=== PATIENT | female | born 1940 | race Hispanic/Latino ===

== ENCOUNTER → 2017-09-25 | Day surgery (SDC) | payer OTHER ==
--- NOTE | 2017-09-24 11:35 | Diagnostic Imaging Report ---
PROCEDURE: X-RAY CHEST, TWO VIEWS COMPARISON: None. INDICATIONS: PRE OPERATIVE CHEST X-RAY FOR ELBOW SURGERY FINDINGS: The lungs are well-inflated. No focal airspace consolidation, pleural effusion, or pneumothorax. Nodular opacities projecting over the lung bases likely represent nipple shadows. Tortuosity and atherosclerotic calcification of the thoracic aorta. Normal heart size. No overt pulmonary edema. No acute osseous abnormality. Surgical clips project over the right upper quadrant of the abdomen compatible with cholecystectomy. CONCLUSION: No acute cardiopulmonary abnormality. Dictated by: Donnie Saavedra M.D. on 09/24/2017 at 11:38 Electronically approved by: Donnie Saavedra M.D. on 09/24/2017 at 11:38
[~2017-09-25] MED LIST: ACETAMINOPHEN/CODEINE 300MG - 30MG TAB ONE; ASPIR 8181 MG PO; BACITRACIN 50,000 UNIT VIAL ONE; BONIVA150 MG PO; BUPIVACAINE HCL 0.5% INJ 30 ML VIAL INJ ONE; CEFAZOLIN SOD 2 GM/D5W 50ML 50 ML IV ONE; COENZYME Q1010 MG PO; DEXAMETHASONE SOD PHOS INJ 4 MG/ML VIAL ONE; DIOVAN HCT 1601 EACH PO; DIOVAN80 MG PO; EPHEDRINE SULFATE INJ 50 MG/10 ML SYR ONE; FENTANYL CITRATE/PF 100MCG/2 ML INJ ONE; GLYCOPYRROLATE INJ 1MG/ 5 ML SYR ONE; KETOROLAC TROMETHAMINE 30 MG/ML VIAL ONE; LABETALOL HCL 5 MG/ML 20ML VIAL ONE; LIDOCAINE HCL 2% LOCAL INJ 5 ML SDV VIAL INJ ONE; LOPRESSOR25 MG PO; LORAZEPAM2 MG PO; LOSARTAN POTAS100 MG PO; MIDAZOLAM HCL 2 MG/2 ML VIAL ONE; NEOSTIGMINE 5 MG/5ML SYR ONE; ONDANSETRON HCL INJ 2 MG/ML VIAL ONE; PROPOFOL IV EMULSION 10 MG/ML 20 ML VIAL ONE; ROCURONIUM BROMIDE 10 MG/ML 5ML VIAL ONE; SEVOFLURANE INHAL SOLN 250 ML PEN BTL ONE; SIMVASTATIN20 MG PO
--- NOTE | 2017-09-28 15:29 | Operative Report ---
DATE OF PROCEDURE: September 25, 2017 PREOPERATIVE DIAGNOSIS: Fracture of the lateral condyle of the right distal humerus. POSTOPERATIVE DIAGNOSIS: Fracture of the lateral condyle of the right distal humerus. OPERATIONS/PROCEDURE PERFORMED: Patient underwent an open reduction and internal fixation of the right lateral condyle fracture of the right distal humerus. PATTERN DATA OPERATOR: None. ANESTHESIA: General endotracheal intubation anesthesia. IV FLUIDS: Per anesthesia record. BRIEF DESCRIPTION OF OPERATIVE PROCEDURE: Ms. Alas was taken to the operating room and placed in supine position on the operating table. Following induction of general anesthesia as well as endotracheal intubation, patient's right upper extremity was examined under anesthesia. She was found to have bruising and swelling about the elbow joint. Fluoroscopic evaluation of the patient's elbow demonstrated an intra-articular fracture of the lateral condyle of the humerus. There was mild displacement at the time of surgery. The patient's upper extremity was prepped and draped in standard surgical fashion. The case was begun by creating incision along the posterior aspect of the arm extending over the olecranon process and ulna. This incision was carried through skin only. Blunt dissection was used to deepen the incision to the level of the triceps musculature. A window was made in the lateral aspect of the distal triceps musculature exposing the patient's lateral condyle. The fracture site was easily identified. It was debrided and reduced. A plate was contoured to the posterior aspect of the lateral condyle and the locking plate was then affixed to the posterolateral column of the distal humerus with combinations of both cortical and locking screws. The position of that plate, reduction of fracture and reestablishment of the articular surface of the joint was then assessed using fluoroscopy and found to be appropriate. The elbow was placed in range of motion and found be stable. There was no motion at the fracture site. This wound was then copiously irrigated and closed in a multilayer fashion. Sterile dressings were applied as well as a well-padded double sugar-tong splint. The patient was then awakened and taken to the postanesthesia care unit in stable condition. Job#: [id number] SABRA
== END | disposition home or self-care (01) ==
LOC: OR 09:07
PROVIDERS: ATTEND Specialist
DX: S42.451A Displaced fracture of lateral condyle of right humerus, initial encounter for closed fracture (principal); I12.9 Hypertensive chronic kidney disease with stage 1 through stage 4 chronic kidney disease, or unspecified chronic kidney disease; N18.9 Chronic kidney disease, unspecified; R00.1 Bradycardia, unspecified; W01.0XXA Fall on same level from slipping, tripping and stumbling without subsequent striking against object, initial encounter; Y93.01 Activity, walking, marching and hiking; Y92.410 Unspecified street and highway as the place of occurrence of the external cause; Y99.8 Other external cause status; Z01.810 Encounter for preprocedural cardiovascular examination; Z01.818 Encounter for other preprocedural examination; Z79.82 Long term (current) use of aspirin
CPT/HCPCS: 24579; 71046; 76000; 93005; J1100; J1885; J2001; J2250; J2405; J3490 ×2; C1713

== ENCOUNTER → 2022-06-12 | Day surgery (SDC) | payer OTHER ==
[2022-06-11 11:45] LABS: BASOPHILS % 0.5 % (0.0-1.0); EOSINOPHILS # (AUTO) 0.1 (0.0-0.4); EOSINOPHILS % 0.9 % (0.0-6.0); HEMATOCRIT 40.4 % (34.2-44.1); HEMOGLOBIN 12.9 g/dL (12.0-16.0); LYMPHOCYTES % 33.6 % (18.0-39.1); MEAN CORPUSCULAR HEMOGLOBIN 30.1 pg (28-32); MEAN CORPUSCULAR HGB CONC 31.9 g/dL (31-35); MEAN CORPUSCULAR VOLUME 94.2 fL (81-99); MONOCYTES # (AUTO) 0.7 (0.2-0.8); MONOCYTES % 8.2 % (4.4-11.3); NEUTROPHILS % 56.6 % (38.7-80.0); PLATELET COUNT 166 x10e3/uL (140-360); RED BLOOD COUNT 4.29 x10e6/uL (3.6-5.1); RED CELL DISTRIBUTION WIDTH 13.5 % (11.7-14.4)
[2022-06-11 11:56] LABS: INR 0.95; PROTHROMBIN TIME 12.9 seconds (11.9-14.5)
[2022-06-11 11:57] LABS: PARTIAL THROMBOPLASTIN TIME 27.8 seconds (23.8-35.5)
[2022-06-11 12:03] LABS: ANION GAP 15.3 mmol/L (8-16); CALCIUM 9.7 mg/dL (8.4-10.2); CREATININE, SERUM 1.38 mg/dL (0.57-1.11); POTASSIUM 5.3 mmol/L (3.5-5.1)
[~2022-06-12] MED LIST changes: -ACETAMINOPHEN/CODEINE 300MG - 30MG TAB ONE; +AMLODIPINE BESYL5 MG PO; +ARICEPT5 MG PO; -BACITRACIN 50,000 UNIT VIAL ONE; -BUPIVACAINE HCL 0.5% INJ 30 ML VIAL INJ ONE; +CALCIUM600 MG PO; -CEFAZOLIN SOD 2 GM/D5W 50ML 50 ML IV ONE; -DEXAMETHASONE SOD PHOS INJ 4 MG/ML VIAL ONE; -EPHEDRINE SULFATE INJ 50 MG/10 ML SYR ONE; +GABAPENTIN300 MG PO; -GLYCOPYRROLATE INJ 1MG/ 5 ML SYR ONE; -KETOROLAC TROMETHAMINE 30 MG/ML VIAL ONE; -LABETALOL HCL 5 MG/ML 20ML VIAL ONE; -LIDOCAINE HCL 2% LOCAL INJ 5 ML SDV VIAL INJ ONE; -NEOSTIGMINE 5 MG/5ML SYR ONE; -ONDANSETRON HCL INJ 2 MG/ML VIAL ONE; +OR PHACO EYE KIT ONE; +PREOP PHACO EYE KIT ONE; -PROPOFOL IV EMULSION 10 MG/ML 20 ML VIAL ONE; -ROCURONIUM BROMIDE 10 MG/ML 5ML VIAL ONE; -SEVOFLURANE INHAL SOLN 250 ML PEN BTL ONE; +VIT B12 PO; +VIT C PO
[2022-06-12 08:05] VITALS: BP 120/59
== END | disposition home or self-care (01) ==
LOC: OR 06:51
PROVIDERS: ATTEND Ophthalmology
DX: H25.11 Age-related nuclear cataract, right eye (principal); I12.9 Hypertensive chronic kidney disease with stage 1 through stage 4 chronic kidney disease, or unspecified chronic kidney disease; N18.30 Chronic kidney disease, stage 3 unspecified; R00.2 Palpitations; Z01.812 Encounter for preprocedural laboratory examination; Z79.899 Other long term (current) drug therapy
CPT/HCPCS: 36415; 80048; 84132; 85025; 85610; 85730; J2250; V2788

== ENCOUNTER → 2022-07-10 | Day surgery (SDC) | payer OTHER ==
[~2022-07-10] MED LIST changes: +LACTATED RINGER'S 1,000 ML ONE; +LEG CRAMPS PO
[2022-07-10 09:35] VITALS: BP 132/66
== END | disposition home or self-care (01) ==
LOC: OR 07:38
PROVIDERS: ATTEND Ophthalmology
DX: H25.12 Age-related nuclear cataract, left eye (principal); Z79.899 Other long term (current) drug therapy
CPT/HCPCS: J2250; V2788